=== PATIENT | female | born 1990 | race Hispanic/Latino ===

== ENCOUNTER 2022-06-14 12:39 | Emergency (ER) | payer OTHER ==
[~2022-06-14] VITALS: Ht 154.9 cm; Wt 65.8 kg
[2022-06-14 12:42] VITALS: BP 111/67
[2022-06-14 13:19] LABS: BASOPHILS % (AUTO) 0.3 % (0.0-5.0); HEMATOCRIT 42.6 % (36-48); LYMPHOCYTES % (AUTO) 12.2 % (21.0-51.0); MEAN CORPUSCULAR HEMOGLOBIN 28.1 pg (27.0-33.0); MEAN CORPUSCULAR HGB CONC 33.1 g/dL (32.0-36.0); MEAN CORPUSCULAR VOLUME 84.9 fL (79-99); MONOCYTES % (AUTO) 6.5 % (3.0-13.0); NEUTROPHILS % (AUTO) 80.8 % (40.0-77.0); PLATELET COUNT (AUTO) 196 K/uL (130-400); RED BLOOD CELL COUNT(AUTO) 5.02 MIL/uL (4.00-5.50); RED CELL DISTRIBUTION WIDTH 13.2 % (11.0-15.5); WHITE BLOOD COUNT (AUTO) 9.2 K/uL (4.8-10.8)
[2022-06-14 13:20] LABS: APPEARANCE,URINE SL CLOUDY (CLEAR); BILIRUBIN,URINE SMALL (NEGATIVE); COLOR,URINE YELLOW (YELLOW); GLUCOSE, URINE (UA) NEGATIVE (NEGATIVE); KETONES,URINE 15 mg/dL (NEGATIVE); LEUKOCYTE ESTERASE ,URINE NEGATIVE (NEGATIVE); NITRATE,URINE NEGATIVE (NEGATIVE); OCCULT BLOOD,URINE MODERATE (NEGATIVE); PROTEIN,URINE TRACE mg/dL (NEGATIVE); UROBILINOGEN,URINE 0.2 mg/dL (0.2-1.0)
[2022-06-14 13:27] LABS: CREATININE 0.7 mg/dL (0.5-1.5); POTASSIUM 3.8 mmol/L (3.5-5.1)
[2022-06-14 13:28] LABS: BACTERIA,URINE Rare /HPF (None Seen); RBC,URINE 0-1 /HPF (0-1); SQUAMOUS EPITHELIAL CELL,UR Few /HPF (0-2); WBC,URINE 0-1 /HPF (0-1)
[2022-06-14] MEDS ORDERED: DICYCLOMINE HCL 10 MG/5 ML ML PO ONE (13:30)
[2022-06-14] MEDS ORDERED: ONDANSETRON 4MG TABLET PO ONE (13:30)
[2022-06-14] MEDS ORDERED: MAG/ALUM/SIMETH 30 ML UDCUP PO ONE (13:30)
[2022-06-14] MEDS ORDERED: LIDOCAINE HCL 2% VISCOUS 15 ML UDCUP PO ONE (13:30)
[2022-06-14] MEDS ORDERED: FAMOTIDINE 20MG TAB PO ONE (13:30)
[2022-06-14 13:31] LABS: ALBUMIN 3.4 g/dL (3.5-5.0); TOTAL PROTEIN, SERUM 7.8 g/dL (6.0-8.3)
[2022-06-14] MEDS ORDERED: DICY20TA2 PO (13:42)
[2022-06-14] MEDS ORDERED: ONDA4TAB10 PO (13:42)
[2022-06-14] MEDS ORDERED: FAMO-136 PO (13:42)
== END 2022-06-14 13:52 | disposition home or self-care (01) ==
LOC: EDH 12:39
DX: A08.4 Viral intestinal infection, unspecified (principal); K29.70 Gastritis, unspecified, without bleeding
CPT/HCPCS: 99284; 84484; 80053; 83690; 85025; 81001; 81025; 36415; Q0162